=== PATIENT | male | born 1965 | race Two or more races ===

== ENCOUNTER 2018-08-07 11:02 | Observation (INO) | payer SELFPAY ==
[2018-08-07] VITALS (9 sets, daily range): BP systolic 116–140; BP diastolic 67–88; Ht 175.3 cm; Wt 110.0 kg
[~2018-08-07] VITALS: Ht 175.3 cm; Wt 110.0 kg
--- NOTE | ~2018-08-07 | HEMODYNAMI ---
PATIENT:ALICIA AVELAR MEDICAL RECORD: [id number] : 65 LOCATION:[address] [id number] ADMISSION DATE: 08/07/18 Generatedon:08/08/201810:31 Patient name: ALICIA AVELAR Patient #: [id number] SSN: : 1965 Date of study: 08/08/2018 Page: Of Hemodynamic Procedure Report Patient Data Patient Demographics Procedure consent was obtained First Name: ALICIA Gender: Male Last Name: VALENTINO : 1965 Patient #: [id number] Age: 53 year(s) Race: Other Additional ID: [id number] Contact details Address: [address] [place] [address] State: [place] City: [facility] Zip code: [address] Past Medical History Allergies: No known allergies Admission Admission Data Admission Date: 08/07/2018 Admission Time: 12:42 Room #: D.2115 Lab Results Lab Result Date: 08/08/2018 Lab Result Time: 0:00 Biochemistry Name Units Result Min Max BUN mg/dl 12 --(-*--)-- 7 18 Creatinine mg/dl 0.8 --(-*--)-- 0.6 1.3 CBC Name Units Result Min Max Hemoglobin g/dl 15.4 --(-*--)-- 13.5 17.5 Procedure Procedure Types Cath Procedure Diagnostic Procedure C [facility] w/Coronaries Peripheral Cath Diagnostic Procedure 4-Vessel Bilateral Carotid Arteriogram Procedure Description Procedure Date Procedure Date: 08/08/2018 Procedure Start Time: 10:19 Procedure End Time: 10:30 Procedure Staff Name Function Azam Dukes MD Performing Physician Sandy Saavedra RT Monitor Barney Lindsey RN Nurse Denia Garvey RT Scrub Procedure Data Cath Procedure Fluoroscopy Diagnostic fluoroscopy Total fluoroscopy Time: 2.1 time: 2.1 min min Diagnostic fluoroscopy Total fluoroscopy dose: 668 dose: 668 mGy mGy Contrast Material Contrast Material Type Amount (ml) Isovue 300 95 Entry Location Entry Primary Successful Side Size Upsize Upsize Entry Closure Succes sful Closure Location (Fr) 1 (Fr) 2 (Fr) Remarks Device Remarks Femoral Right 5 Fr Exoseal artery Estimated blood loss: 10 ml Diagnostic catheters Device Type Used For End Catheter Placement MULTIPACK JL 4.0 5Fr Procedure catheter MULTIPACK 3DRC 5Fr Procedure catheter MULTIPACK Pigtail 5 Fr Ventriculography catheter Procedure Complications No complications Procedure Medications Medication Administration Route Dosage Oxygen etCO2 Nasal cannula 2 l/min Heparin Flush Bag added to field 2 bags (1000units/500ml NS) 0.9% NaCl I.V. 100 ml/hr Lidocaine 2% added to field 20 Fentanyl I.V. 50 mcg Versed I.V. 1 mg Fentanyl I.V. 50 mcg Versed I.V. 1 mg Fentanyl I.V. 50 mcg Fentanyl I.V. 50 mcg Hemodynamics Rest HGB: 15.4 (g/dl) Heart Rate: 76 (bpm) Pressure Samples Time Site Value (mmHg) Purpose Heart Use Rate(bpm) 10:25 LV 106/2,17 EDP 75 Gradients Valve Time Site Site Mean SEP/DFP Peak To Heart Use 1 2 (mmHg) (sec/min) Peak Rate (mmHg) (bpm) Aortic 10:26 LV AO 77 Snapshots Pre Cath Intra NCS Post Cath Vital Signs Time Heart Resp SPO2 etCO2 NIBP Rhythm Pain Sedation Rate (ipm) (%) (mmHg) (mmHg) Status Level (bpm) 10:07:08 76 16 96 0 118/80(91) NSR 0 (11) 10(A) , No pain 10:11:13 76 16 94 17.9 110/82(92) NSR 0 (11) 10(A) , No pain 10:15:17 74 17 95 18.7 118/74(93) NSR 0 (11) 10(A) , No pain 10:19:25 74 16 96 26.2 128/72(89) NSR 0 (11) 10(A) , No pain 10:23:37 73 17 96 35.9 122/75(91) NSR 0 (11) 10(A) , No pain 10:27:49 77 16 96 39 129/70(82) NSR 0 (11) 9(A) , No pain 10:29:11 76 17 88 27.7 108/76(88) NSR 0 (11) 9(A) , No pain Medications Time Medication Route Dose Verified Delivered Reason Notes Effe ctiveness by by 10:06:25 Oxygen etCO2 2 Azam Barney Per Nasal l/min St Franki Lindsey RN physician cannula 10:06:32 Heparin Flush added 2 Azam Barney used for Bag to bags St Franki Lindsey relief man (1000units/500ml field OLMOS NS) 10:06:40 0.9% NaCl I.V. 100 Azam Barney Per ml/hr St Franki Lindsey RN physician 10:06:48 Lidocaine 2% added 20ml Azam Barney used for to vial [facility] Franki Lindsey relief man field OLMOS 10:16:01 Fentanyl I.V. 50 Azam Barney for [facility] Franki Lindsey RN sedation 10:16:07 Versed I.V. 1 mg Azam Barney for [facility] Franki Lindsey RN sedation 10:18:29 Fentanyl I.V. 50 Azam Barney for [facility] Franki Lindsey RN sedation 10:18:32 Versed I.V. 1 mg Azam Barney for [facility] Franki Lindsey RN sedation 10:20:52 Fentanyl I.V. 50 Azam Barney for [facility] Franki Lindsey RN sedation 10:25:04 Fentanyl I.V. 50 Azam Barney for [facility] Franki Lindsey RN sedation Procedure Log Time Note 9:42:53 Barney Lindsey RN sent for patient. Start room use. 9:57:50 Diagnostic Cath status Elective 9:57:56 Time tracking: Call back (After hours or weekends) 9:58:01 Plan of Care:Hemodynamics will remain stable., Cardiac rhythm will remain stable., Comfort level will be maintained., Respiratory function will remain adequate., Patient/ family verbilizes understanding of procedure., Procedure tolerated without complication., Recovers from procedure without complications.. 9:58:19 Patient received from Med II to CCL 2 Alert and oriented. Tansferred to table in Supine position. 9:58:20 Warm blankets applied, and husam hugger turned on for patient comfort. 9:58:21 Correct patient and procedure confirmed by team. 9:58:22 Signed procedure consent form obtained from patient. 9:58:42 H&P Date Dictated: 08/06/2018 Within 30 days and on chart.. 9:58:44 Pre-procedure instructions explained to patient. 9:58:48 Family in waiting room. 9:58:49 Patient NPO since Midnight. 9:59:00 Patient allergic to No known allergies 9:59:03 Is the patient allergic to Iodine/contrast media? No. 9:59:04 Was the patient premedicated? Yes 9:59:11 Use device set Femoral Dx 9:59:12 ACIST Syringe (93051) opened to sterile field. 9:59:13 Bag Decanter (2002S) opened to sterile field. 9:59:13 Medline Cath Pack ([id number]) opened to sterile field. 9:59:15 DIAGNOSTIC WIRE .035 260cm J wire (924841) opened to sterile field. 9:59:16 ACIST Hand Control (90435) opened to sterile field. 9:59:16 ACIST Manifold (02781) opened to sterile field. 9:59:17 DIAGNOSTIC Multipack 5Fr catheter set (GE1152) opened to sterile field. 9:59:19 SHEATH 5FR [place] (GCI265) opened to sterile field. 10:05:05 Vital chart was started 10:06:25 Oxygen 2 l/min etCO2 Nasal cannula was administered by Barney Lindsey RN; Per physician; 10:06:32 Heparin Flush Bag (1000units/500ml NS) 2 bags added to field was administered by Barney Lindsey RN; used for procedure; 10:06:40 0.9% NaCl 100 ml/hr I.V. was administered by Barney Lindsey RN; Per physician; 10:06:48 Lidocaine 2% 20ml vial added to field was administered by Barney Lindsey RN; used for procedure; 10:07:39 ECG and BP/O2 sat monitors applied to patient. 10:07:40 Baseline sample Acquired. 10:07:45 Rhythm: sinus rhythm 10:07:46 Full Disclosure recording started 10:07:51 Patient diabetic? Yes. 10:07:53 If diabetic: On Metformin? Yes 10:07:55 If on Metformin: Last Dose? 08/07/2018 10:08:00 Snore? Yes 10:08:02 Sleep apnea? No 10:08:03 Deviated septum? No 10:08:18 IV patent on arrival in right forearm with 0.9% NaCl at [facility]. 10:08:44 Lab Result : Creatinine 0.8 mg/dl 10:: Lab Result : BUN 12 mg/dl 10::44 Lab Result : Hemoglobin 15.4 g/dl 10::49 Lab results completed and on chart. 10:08:52 Right groin area was prepped with chlora-prep and draped in sterile fashion 10::53 Alarms reviewed by R. N. 10::54 Sharps counted by scrub and verified by R.N. 10::57 Physician paged 10:15:35 Physician arrived 10:15:36 --------ALL STOP TIME OUT------ 10:15:36 Final Timeout: patient, procedure, and site verified with staff and physician. All members of the team are in agreement. 10:15:38 Right groin site verified by team. 10:15:43 Fire Safety Assessment: A--An alcohol-based skin anteseptic being used preoperatively., C--Open oxygen or nitrous oxide is being used. 10:15:48 Physical assessment completed. ASA score P 2 - A patient with mild systemic disease as per Azam Dukes MD. 10:15:53 Sedation plan: IV Moderate Sedation Medication:Versed, Fentanyl 10:16:01 Fentanyl 50 mcg I.V. was administered by Barney Lindsey RN; for sedation; 10:16:07 Versed 1 mg I.V. was administered by Barney Lindsey RN; for sedation; 10:18:29 Fentanyl 50 mcg I.V. was administered by Barney Lindsey RN; for sedation; 10:18:32 Versed 1 mg I.V. was administered by Barney Lindsey RN; for sedation; 10:19:19 Procedure started. 10:19:35 Local anesthetic to right femoral artery with Lidocaine 2% by Azam Dukes MD.INITIAL ACCESS ONLY 10::44 A 5 Fr sheath was inserted into the Right Femoral artery 10:19:55 A MULTIPACK JL 4.0 5Fr catheter was advanced over the wire and used for Procedure. 10:19:57 LCA angiography performed. 10:20:52 Fentanyl 50 mcg I.V. was administered by Barney Lindsey RN; for sedation; 10:21:46 Catheter removed. 10:21:56 A MULTIPACK 3DRC 5Fr catheter was advanced over the wire and used for Procedure. 10:22:45 RCA angiography performed. 10:23:19 Bilateral carotid angiography performed. 10:24:41 Catheter removed. 10::45 Zero performed for pressure channel P1 10:25:04 Fentanyl 50 mcg I.V. was administered by Barney Lindsey RN; for sedation; 10:25:08 A MULTIPACK Pigtail 5 Fr catheter was advanced over the wire and used for Ventriculography. 10:25:14 LV gram done using GEE 10::31 EF : 25 % 10::35 Catheter removed. 10:26:50 EXOSEAL 5Fr (EX500) opened to sterile field. 10:28:14 Sheath removed intact; hemostasis achieved with Exoseal to the Right Femoral artery. 10:28:17 Procedure ended.(Physican Out) 10::34 Fluoroscopy time 02.10 minutes. 10::39 Flurop Dose total: 668 10::39 Fluoroscopy dose: 668 mGy 10::45 Contrast amount:Isovue 300 95ml. 10:28:47 Sharps counted by scrub and verified by R.N. 10:28:52 Insertion/operative site no bleeding no hematoma. 10:28:56 Post-op/insertion site Right Femoral artery dressed using a 4 x 4 and Tegaderm. 10:28:58 Post Procedure Pulses reassessed and unchanged 10:29:03 Post-procedure physical assessment completed. ASA score P 2 - A patient with mild systemic disease as per Azam Dukes MD. 10:29:06 Post procedure rhythm: unchanged. 10:29:09 Estimated blood loss: 10 ml 10:29:11 Post procedure instruction explained to patient.Patient verbalizes understanding. 10:29:50 Procedure type changed to Cath procedure, Diagnostic procedure, LHC, LHC w/Coronaries, Peripheral Cath Diagnostic Procedure, 4-Vessel, Bilateral Carotid Arteriogram 10:29:51 Procedure and supply charges have been captured, reviewed, submitted and are correct. 10:30:43 Procedure Complication : No complications 10:30:46 Vital chart was stopped 10:30:49 See physician's report for complete and final results. 10:30:51 Report given to Pre/Post Procedure Room. 10:30:56 Patient transfered to Pre/Post Procedure Room with Bed. 10:30:59 Procedure ended. 10:30:59 Full Disclosure recording stopped 10:31:13 End room use (Document Last) Device Usage Item Name Manufacture Quantity Catalog Hospital Part Current Minimal L ot# / Number Charge Number Stock Stock Serial# Code ACIST Acist 1 69418 [id number] 348635 113704 20 Syringe Medical (75299) Systems Inc Bag Microtek 1 2001S 684059 24058 996887 5 Decanter Medical Inc. () Medline Medline 1 [id number] 383147 27294 283185 5 Cath Pack ([id number]) DIAGNOSTIC St Nik 1 146207 399052 248154 280434 30 WIRE .035 260cm J wire (564266) ACIST Hand Acist 1 41117 519352 059799 645690 5 Control Medical (91253) Systems Inc ACIST Acist 1 76954 979545 761625 774755 5 Manifold Medical (68213) Systems Inc DIAGNOSTIC Cardinal 1 CU0451 279797 03543 855342 30 Multipack Health 5Fr catheter set (HU2786) SHEATH 5FR Terumo 1 UPE473 857465 192080 744795 5 [place] (NTV298) MULTIPACK Cardinal 1 176738 5 JL 4.0 5Fr Health catheter MULTIPACK Cardinal 1 058895 5 3DRC 5Fr Health catheter MULTIPACK Cardinal 1 569381 5 Pigtail 5 Health Fr catheter EXOSEAL 5Fr Cardinal 1 EX500 115553 121853 868460 10 (EX500) Health Signature Audit [place] Stage Time Signature Unsigned Intra-Procedure 08/08/2018 Sandy Saavedra 10:31:43 AM RT(R) Signatures Monitor : Sandy Saavedra Signature : RT Date : Time : [facility] [address] [place] [address]
[2018-08-07] MEDS ORDERED: GLUCOPHAGE500 MG (11:14)
[2018-08-07] MEDS ORDERED: CHOLESTEROL MED (11:14)
[2018-08-07] MEDS ORDERED: COZAAR25 MG (11:14)
[2018-08-07 11:23] LABS: BASOPHILS 0.1 % (0-2); EOSINOPHILS 1.2 % (0-7); HEMATOCRIT 44.9 % (42.0-54.0); IMMATURE GRANULOCYTES 0.3 % (0-5); LYMPHOCYTES 24.4 % (15-50); MCH 29.8 pg (26.0-34.0); MCHC 35.6 g/dL (31.0-37.0); MCV 83.6 fL (80.0-100.0); MEAN PLATELET VOLUME 10.8 fL (7.4-10.4); MONOCYTES 7.5 % (2-11); NEUTROPHILS 66.5 % (40-80); PLATELET COUNT 278 10x3/uL (130-400); RBC 5.37 10x6/uL (4.20-6.10); RDW 13.8 % (11.5-14.5); WBC 9.9 10x3/uL (4.8-10.8)
[2018-08-07 11:34] LABS: INR 1.11 (0.85-1.17); PROTIME 13.8 SECONDS (11.6-15.0)
[2018-08-07 11:39] LABS: ALBUMIN 3.4 g/dL (3.4-5.0); ALKALINE PHOSPHATASE 96 U/L (46-116); ALT (SGPT) 17 U/L (10-68); BILIRUBIN - TOTAL 0.62 mg/dL (0.2-1.3); CALC OSMOLALITY 282 mosm/kg (275-300); CALCIUM 8.6 mg/dL (8.5-10.1); CARBON DIOXIDE 24.3 mmol/L (21.0-32.0); CHLORIDE - SERUM 101 mmol/L (98-107); CREATININE - SERUM 0.9 mg/dL (0.6-1.3); GLUCOSE 226 mg/dL (74-106); POTASSIUM - SERUM 3.8 mmol/L (3.5-5.1); PROTEIN - SERUM 7.1 g/dL (6.4-8.2); SODIUM 137 mmol/L (136-145); UREA NITROGEN 19 mg/dL (7-18); eGFR NON AFRICAN AMERICAN > 90 mL/min (90-120)
[2018-08-07 11:50] LABS: CKMB 1.5 U/L (0.0-3.6); CREATINE KINASE 41 UL (21-232); MAGNESIUM - SERUM 1.2 mg/dL (1.8-2.4); TROPONIN-I 0.026 ng/mL (0.000-0.060)
--- NOTE | 2018-08-07 12:40 | NUR ---
REPORT GIVEN TO BELL LAZO, UTILIZING SBAR FORMAT AT THIS TIME.
--- NOTE | 2018-08-07 13:50 | NUR ---
PT STATES THAT HE WANTS TO LEAVE AMA AND GO TO HIS HOMETOWN TO BE TREATED. CALL TO DR. GONZALEZ, HE STATES THAT TO INFORM THE PT THAT WE WILL CALL THE DEPARTMENT OF TRANSPORTATION AND INFORM THEM THAT HE IS DRIVING A COMMERCIAL [employer] WHEN HE HAS BEEN INFORMED BY THE DOCTOR THAT IT IS NOT SAFE FOR HIM TO DRIVE. INFORMED THE PT OF THE ABOVE AND ERP ALSO INFORMED THE PT THAT DRIVEING AGAINST MEDICAL ADVICE COULD CAUSE HIM TO LOSE HIS JOB BECAUSE HE IS ENDANGERING THE LIVES OF PEOPLE ON THE ROAD SINCE HE COULD POSSIBLY WHILE DRIVING TO HIS [place]OMETOWN DUE TO HIS HEART CONDITION. AFTER A FEW MOMENTS DISCUSSING THE SITUATION WITH HIS , HE DECIDED TO STAY. CALL PLACED TO DR. CARRILLO INFORMING HIM THAT THE PT IS GOING TO STAY.
--- NOTE | 2018-08-07 14:10 | NUR ---
TRANSFER FROM ER BY W/CMathew CASTRO TO ROOM. CALL LIGHT IN REACHY. WILL CONT. PLAN OF CARE.
--- NOTE | 2018-08-07 18:18 | NUR ---
URINE SPECIMEN COLLECTED AND TAKEN TO LAB. WILL MONITOR.
[2018-08-07 18:20] LABS: APPEARANCE CLEAR (CLEAR); BILIRUBIN NEGATIVE (NEGATIVE); COLOR YELLOW (YELLOW); GLUCOSE NEGATIVE (NEGATIVE); KETONE NEGATIVE (NEGATIVE); NITRITE NEGATIVE (NEGATIVE); PROTEIN NEGATIVE (NEGATIVE); UROBILINOGEN NORMAL (NORMAL)
[2018-08-07 18:27] LABS: UDS - AMPHET NEGATIVE QUAL (NEGATIVE); UDS - BARB NEGATIVE QUAL (NEGATIVE); UDS - BENZO NEGATIVE QUAL (NEGATIVE); UDS - COCAINE NEGATIVE QUAL (NEGATIVE); UDS - OPIATE NEGATIVE QUAL (NEGATIVE); UDS - PCP NEGATIVE QUAL (NEGATIVE); UDS - THC NEGATIVE QUAL (NEGATIVE)
[2018-08-07 18:43] LABS: TROPONIN-I 0.022 ng/mL (0.000-0.060)
--- NOTE | 2018-08-07 20:00 | NUR ---
INITIAL ROUNDS AND ASSESSMENT COMPLETED. PT RESTING IN ROOM. AMBULATORY. SR PER TELEMETRY. MONITOR AND CPOC.
--- NOTE | 2018-08-07 22:55 | NUR ---
FSBS 226. PT JUST ATE A BAG OF CORN CHIPS. WILL NOT USE SLIDING SCALE PT WILL BE NPO AFTER MIDNIGHT FOR HEART CATH IN THE AM.
[2018-08-08 00:48] LABS: CKMB 1.7 U/L (0.0-3.6); CREATINE KINASE 40 UL (21-232); TROPONIN-I 0.025 ng/mL (0.000-0.060)
[2018-08-08 03:55] VITALS: BP 113/57
[2018-08-08 05:44] LABS: BASOPHILS 0 % (0-2); EOSINOPHILS 1.2 % (0-7); HEMATOCRIT 44.2 % (42.0-54.0); HEMOGLOBIN 15.4 g/dL (13.5-17.5); IMMATURE GRANULOCYTES 0.2 % (0-5); LYMPHOCYTES 32.5 % (15-50); MCH 28.9 pg (26.0-34.0); MCHC 34.8 g/dL (31.0-37.0); MCV 83.1 fL (80.0-100.0); MEAN PLATELET VOLUME 10.7 fL (7.4-10.4); MONOCYTES 8.4 % (2-11); NEUTROPHILS 57.7 % (40-80); PLATELET COUNT 268 10x3/uL (130-400); RBC 5.32 10x6/uL (4.20-6.10); RDW 13.9 % (11.5-14.5); WBC 9.4 10x3/uL (4.8-10.8)
--- NOTE | 2018-08-08 06:00 | NUR ---
PT NPO SINCE 010. FAMILY ARRIVED FROM [place] AROUND 0300. PT WITH SOME ANXIETY ABOUT HEART CATH TODAY. TEACHING AND INSTRUCTIONS GIVEN. WILL MONITOR AND CPOC.
[2018-08-08 06:14] LABS: ALBUMIN 3.3 g/dL (3.4-5.0); ALKALINE PHOSPHATASE 86 U/L (46-116); ALT (SGPT) 20 U/L (10-68); BILIRUBIN - TOTAL 0.62 mg/dL (0.2-1.3); CALC OSMOLALITY 276 mosm/kg (275-300); CALCIUM 8.3 mg/dL (8.5-10.1); CARBON DIOXIDE 23.3 mmol/L (21.0-32.0); CHLORIDE - SERUM 103 mmol/L (98-107); CHOLESTEROL, TOTAL 139 mg/dL (0-200); CREATININE - SERUM 0.8 mg/dL (0.6-1.3); GLUCOSE 154 mg/dL (74-106); HDL CHOLESTEROL 28 mg/dL (32-96); LDL CHOLESTEROL 76 mg/dL (0-100); LDL-HDL RATIO 2.7 ratio (1.5-3.5); MAGNESIUM - SERUM 1.7 mg/dL (1.8-2.4); POTASSIUM - SERUM 3.6 mmol/L (3.5-5.1); PROTEIN - SERUM 6.6 g/dL (6.4-8.2); SODIUM 137 mmol/L (136-145); TRIGLYCERIDE 177 mg/dL (30-200); eGFR NON AFRICAN AMERICAN > 90 mL/min (90-120)
[2018-08-08 06:15] LABS: UREA NITROGEN 12 mg/dL (7-18)
[2018-08-08 09:27] VITALS: BP 113/64
--- NOTE | 2018-08-08 09:30 | NUR ---
PRE-OPS GIVEN. TO STERILE PROCESSING TECHNICIAN BY BED.
--- NOTE | 2018-08-08 11:04 | NUR ---
BACK FROM LEGAL ARBITRATOR. VS WNL. RIGHT GROIN STABLE WITHOUT BLEEDING OR HEMATOMA NOTED. WILL MONITOR.
[2018-08-08 12:05] VITALS: BP 119/68
[2018-08-08] MEDS ORDERED: COREG6.25 MG PO (13:30)
[2018-08-08] MEDS ORDERED: GLUCOPHAGE500 MG PO (13:45)
[2018-08-08] MEDS ORDERED: COZAAR100 MG PO (13:45)
[2018-08-08] MEDS ORDERED: LIPITOR20 MG PO (13:46)
--- NOTE | 2018-08-08 14:10 | NUR ---
BED REST UP. GROIN STABLE. IV AND TELEMETRY DCD. DC PLANS GIVEN. UNDERSTANDING VOICED. NICOTINE PATCH REPLACED. ESCORTED TO CAR BY W/C.
--- NOTE | 2018-08-09 09:43 | MORECARE ---
CASE MANAGEMENT DISCHARGE SUMMARY PATIENT: ALICIA AVELAR UNIT: [id number] ADM DATE: 08/07/18 AGE: 53 : 65 SEX: M ROOM/BED: D.2115 AUTHOR: GUERLINE BILL PHYSICIAN: REFERRING PHYSICIAN: ANG GONZALEZ MD DATE OF SERVICE: 08/09/18 Discharge Plan Patient Name: ALICIA AVELAR Facility: [facility]:[place] : 1965 Planned Disposition: Home Anticipated Discharge Date: 08/08/18 Discharge Date: 08/08/2018 Expected LOS: 1 Initial Reviewer: [email or web address] Initial Review Date: 08/09/2018 Generated: 08/09/18 10:43 am Patient Name: ALICIA AVELAR Page [id number] at 0943 All edits/amendments must be made on the electronic document DICTATION DATE: 08/09/18941 INDUSTRIAL ORGANIZATIONAL PSYCHOLOGIST: PRIYANKA 08/09/1842 RPT#: [id number] DC DATE:08/08/18 STATUS: DIS IN [facility] [address] [place] [address] END OF REPORT
--- NOTE | 2018-08-13 12:22 | OP ---
PATIENT NAME: ALICIA AVELAR MEDICAL RECORD: [id number] :65 LOCATION:D.M2 D.2115 ADMISSION DATE:08/07/18 SURGEON: FRANCISCA BENNETT MD DATE OF OPERATION: 08/08/2018 PROCEDURE: Left heart catheterization, selective coronary angiography plus 4-vessel arteriography, right femoral artery approach. CATHETERS: A 5-Polish sheath, 5/4 left and right Brooks. The procedure was well tolerated. The patient was returned to [place]. Sheath was removed. ExoSeal device was placed. FINDINGS: Left ventriculography in 30-degree GEE view shows global LV hypokinesis. LV function reduced. Estimated EF 25%. LVEDP is measured at 18 mmHg. CORONARY ANATOMY: LEFT MAIN: Left main is free of disease. LAD: Fills for a very short period of time and then it could be seen filling via [id number] collaterals arising from the circumflex. CIRCUMFLEX: Circumflex itself is large. It is a left dominant system. Circumflex shows luminal irregularities only, but no flow obstructive disease. RIGHT CORONARY ARTERY: Rudimentary. It does have tight stenosis. Too small for intervention. The catheter was drawn to the level of the carotids. Right common carotid was smooth-walled vessel, free of disease. Right internal carotid was small vessel, free of disease. Right external carotid was small vessel, free of disease. The catheter was then placed selectively into the left common carotid, smooth-walled vessel, free of disease. Left external carotid was smooth-walled vessel, free of disease. Left internal carotid was smooth-walled vessel, free of disease. IMPRESSION: Cardiomyopathy and coronary artery disease. We will add carvedilol to his underlying ARB. The patient is from out of town. Second set of films were copied. He will need reevaluation in 3 months after maximization of medications for his cardiomyopathy to see if the patient is a candidate/requires device therapy at that time. Hopefully, LV function will improve with good medical therapy. TRANSINT:[id number] Voice Confirmation ID: [id number] DOCUMENT ID: [id number] FRANCISCA BENNETT MD at 1222 CC: [id number] DICTATION DATE: 08/08/18 1036 HAND SALTER: 08/08/18 1551 DIS IN 08/08/18 [facility] [address] [place] [address]
--- NOTE | 2018-08-13 12:22 | CN ---
PATIENT NAME:ALICIA AVELAR MEDICAL RECORD: [id number] : 65 LOCATION:DEvette D.2115 ADMIT DATE: 08/07/18 ACCOUNT: [id number] CONSULTING PHYSICIAN: FRANCISCA BENNETT MD REFERRING PHYSICIAN: ANG GONZALEZ MD DATE OF CONSULTATION: 08/07/2018 HISTORY OF PRESENT ILLNESS: A 53-year-old gentleman with a history of longstanding diabetes mellitus, hypertension, hyperlipidemia. He has been having intermittent chest tightness and pressure with exertion. On two separate occasions, he has had near syncope. Previously, his anti-hypoglycemics were adjusted. Does report chest tightness and pressure with syncope as well as some visual changes, though not classic amaurosis. We are asked to see him concerning his cardiovascular status. PAST MEDICAL HISTORY: 1. Hypertension. 2. Hyperlipidemia. 3. Diabetes mellitus. ALLERGIES: None known. MEDICATIONS: Include Glucophage, unknown dose; losartan; and statin therapy. SOCIAL HISTORY: He lives in [facility]. Smokes less than a pack a day. Works as a box truck washer. REVIEW OF SYSTEMS: The patient reports easy bruising but reports no swollen glands. The patient reports no fever, no night sweats, no significant weight gain, no significant weight loss. No significant exercise tolerance. The patient reports no dry eyes, no irritation, no vision change. Patient reports no difficulty hearing and no ear pain. Patient reports no frequent nose bleeds or nose and sinus problems. Patient reports on arm pain on exertion. No shortness of breath while lying down. No history of heart murmur. Patient reports no cough, no wheezing or coughing up blood. Patient reports no abdominal pain, no vomiting. Normal appetite. No diarrhea and not vomiting blood. No nausea and no constipation. Patient reports no incontinence. No difficulty urinating. No hematuria. No increased frequency. Patient reports no muscle aches. No weakness, no arthralgias, no back pain. No swelling of the extremities. Patient reports no abnormal mole, no jaundice, no rashes. Reports no loss of consciousness. No weakness and no numbness. No seizures, dizziness, or headaches. The patient reports no depression, no sleep disturbance, feeling safe in a relationship and no alcohol abuse. Patient reports on fatigue. Reports no runny nose or sinus pressure. No itching, no hives, and no frequent sneezing. PHYSICAL EXAMINATION: GENERAL: Pleasant gentleman, in no acute distress. VITAL SIGNS: Blood pressure 120/80, pulse 77 and regular. HEENT: Normocephalic, atraumatic. NECK: No JVD or bruit. HEART: Regular. A II/ systolic function. LUNGS: Good air excursion. ABDOMEN: Soft, nontender. EXTREMITIES: Pulses 2+. There is no edema. CONSULT REPORT [id number] ALICIA AVELAR NEUROLOGIC: Grossly intact. DIAGNOSTIC DATA: ECG shows right bundle and left axis. IMPRESSION: Near syncope. Questionable TIA type symptomatology, angina symptomatology. Multiple risk factors. Markedly abnormal ECG. Plan for angiography. Intervention based on the above. TRANSINT:[id number] Voice Confirmation ID: [id number] DOCUMENT ID: [id number] FRANCISCA BENNETT MD at 1222 CC: [id number] DICTATION DATE: 08/07/18 1522 SUPERVISOR DOPING: 08/08/18 0043 DIS IN 08/08/[address] [facility] [address] [place] [address]
== END 2018-08-08 14:11 | disposition home or self-care (01) ==
LOC: D.ER 11:02 → D.M2 12:42 → OBSVTIME 12:42 → D.M2 08-08 14:11
PROVIDERS: Family Medicine; ADMIT Internal Medicine Nephrology
DX: I25.10 Atherosclerotic heart disease of native coronary artery without angina pectoris (principal); I42.9 Cardiomyopathy, unspecified; R55 Syncope and collapse; R42 Dizziness and giddiness; N17.9 Acute kidney failure, unspecified; E83.42 Hypomagnesemia; F17.213 Nicotine dependence, cigarettes, with withdrawal; E78.5 Hyperlipidemia, unspecified; I10 Essential (primary) hypertension; E11.9 Type 2 diabetes mellitus without complications